=== PATIENT | male | born 1960 | race Caucasian/White ===

== ENCOUNTER 2016-12-26 17:04 | Emergency (ER) | payer BC ==
[2016-12-26 17:10] VITALS: TEMP 98.1
--- NOTE | 2016-12-26 17:20 | EDPHY ---
HPI/HX/ROS/PE/MDM Narrative: CHIEF COMPLAINT: Rectal bleeding HISTORY OF PRESENT ILLNESS: The patient is a 56 y/o male who complains of rectal bleeding since this evening. He has a history of hemorrhoids and has had 2 of them banded. He noticed his hemorrhoids were bothering him earlier today. This evening he passed some gas and then felt wet. He went to the bathroom and noticed he was bleeding when he wiped. He went to the bathroom again and had a bowel movement. In the toilet bowel it looked like there was blood in the toilet. He is unsure if the blood was coating the stool. There was no rectal pain or pain with defecation. Notes he is recently having more bowel movements than normal. Denies pain while passing the bowel movement or rectal pain. Denies indigestion or upset stomach. Denies a colonoscopy, liver problems or abdominal surgeries. Denies anticoagulant use. Denies tobacco or alcohol use. No fever, chills, chest pain, shortness of breath, palpitations, vomiting, diarrhea, urinary complaints, headache, lightheadedness, dizziness. REVIEW OF SYSTEMS: Aside from elements discussed in the HPI, a comprehensive 10-point review of systems was reviewed and is negative. 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 HEENT: Atraumatic. Eyes: No icterus, no injection. Mouth: moist mucous membranes. No erythema or lesions. Neck: supple with no adenopathy. LUNGS: Clear to auscultation bilaterally, no wheezes, rhonchi or rales. CARDIAC: Regular rate and rhythm, no rubs, murmurs or gallops. ABDOMEN: Soft, nontender, nondistended, bowel sounds normal. RECTAL: 2 external hemorrhoids, no thrombosis, not painful, not externally bleeding. Bright red blood on glove. Rectal exam nontender. BACK: No CVA tenderness. EXTREMITIES: No trauma. No edema. Range of motion is normal throughout. NEURO: Alert and oriented, grossly nonfocal. SKIN: Warm and dry, no rash. PSYCHIATRIC: Normal mentation, no agitation. Portions of this note were transcribed by a medical coding instructor. I personally performed a history, physical exam, medical decision making, and confirmed accuracy of information the transcribed note. ED Course: The patient is a 56 y/o male who presents with 2 external hemorrhoids and rectal bleeding. Evaluation emergency department demonstrates normal hemoglobin hematocrit, normal hemodynamics, no abdominal pain, no history suggestive of upper GI bleeding, no history suggestive of diverticular bleeding. He I suspect the patient's bleeding source is most likely internal hemorrhoids. Long discussion held with the patient and his concerning my suspicion of hemorrhoidal bleeding. They do understand that there is a chance of upper GI bleed, significant lower GI bleed, diverticular bleeding, and chance of significant bleeding complications. They are comfortable being discharged with Anusol suppositories and close follow-up. 184: Spoke with Dr. Valente, alodize machine helper, he believes this is hemorrhoidal bleeding. The patient will be referred for an outpatient followup visit on Wednesday. He also needs to have a screening colonoscopy. He will be discharged with Anusol HC. 12-LEAD EKG: Please see the full report in [facility]. My interpretation: Sinus tachycardia with rate of 104. Reassessed patient and discussed plan for follow up visit with Dr. Valente. Return precautions discussed; patient is comfortable with this plan. MDM: Differential diagnosis of this patient's lower GI bleeding was considered including but not limited to diverticular bleeding, diverticulitis, diverticulosis, ischemic colitis, infectious colitis, tumor, AVM, hemorrhoid and anal fissure. - Data Points Laboratory Results: Laboratory Results 12/26/16 17:29 12/26/16 17:29 12/26/16 12/26/16 12/26/16 18:09 17:29 17:29 WBC 6.70 10^3/uL 10^3/uL (3.80-9.50) RBC 5.05 10^6/uL 10^6/uL (4.40-6.38) Hgb 15.6 g/dL g/dL (13.7-17.5) Hct 46.1 % % (40.0-51.0) MCV 91.3 fL fL (81.5-99.8) MCH 30.9 pg pg (27.9-34.1) MCHC 33.8 g/dL g/dL (32.4-36.7) RDW 12.8 % % (11.5-15.2) Plt Count 186 10^3/uL 10^3/uL (150-400) MPV 12.5 fL H fL (8.7-11.7) Neut % (Auto) 53.9 % % (39.3-74.2) Lymph % (Auto) 32.5 % % (15.0-45.0) Dane % (Auto) 9.3 % % (4.5-13.0) Eos % (Auto) 3.1 % % (0.6-7.6) Baso % (Auto) 0.9 % % (0.3-1.7) Nucleat RBC Rel Count 0.0 % % (0.0-0.2) Absolute Neuts (auto) 3.61 10^3/uL 10^3/uL (1.70-6.50) Absolute Lymphs (auto) 2.18 10^3/uL 10^3/uL (1.00-3.00) Absolute Monos (auto) 0.62 10^3/uL 10^3/uL (0.30-0.80) Absolute Eos (auto) 0.21 10^3/uL 10^3/uL (0.03-0.40) Absolute Basos (auto) 0.06 10^3/uL 10^3/uL (0.02-0.10) Absolute Nucleated RBC 0.00 10^3/uL 10^3/uL (0-0.01) Immature Gran % 0.3 % % (0.0-1.1) Immature Gran # 0.02 10^3/uL 10^3/uL (0.00-0.10) Sodium 137 mEq/L mEq/L (134-144) Potassium 4.3 mEq/L mEq/L (3.5-5.2) Chloride 105 mEq/L mEq/L (97-110) Carbon Dioxide 22 mEq/l mEq/l (22-31) Anion Gap 10 mEq/L mEq/L (8-16) BUN 16 mg/dL mg/dL (7-23) Creatinine 1.1 mg/dL mg/dL (0.7-1.3) Estimated GFR > 60 Glucose 83 mg/dL mg/dL (70-100) Calcium 10.0 mg/dL mg/dL (8.5-10.4) Troponin I < 0.012 ng/mL ng/mL (0.000-0.034) Stool Occult Bld Scrn POSITIVE H (NEGATIVE) Medications Given: Discontinued Medications Sodium Chloride (Ns) 1,000 mls @ 0 mls/hr IV ONCE ONE; Wide Open PRN Reason: Protocol Stop: 12/26/16 17:42 Last Admin: 12/26/16 17:49 Dose: 1,000 mls General Time Seen by Provider: 12/26/16 17:15 Initial Vital Signs: Initial Vital Signs Temperature (C) 36.7 C 12/26/16 17:08 Heart Rate 97 12/26/16 17:08 Respiratory Rate 18 12/26/16 17:08 Blood Pressure 116/81 H 12/26/16 17:08 O2 Sat (%) 95 12/26/16 17:08 O2 Delivery Mode Room Air Allergies/Adverse Reactions: CONTRAST DYE Allergy (Uncoded 12/26/16 17:05) Hives Home Medications: Medication Instructions Recorded Albuterol [Proventil Inhaler HFA 2 puffs IH Q6 PRN 02/01/11 (*)] Cholecalciferol Vit D3 [Vitamin D3 1,000 units PO DAILY 04/29/15 (*)] [place]-3 Fatty Acids [Fish Oil 1000 1,000 mg PO DAILY 04/29/15 mg (*)] Herbals/Supplements -Info Only 1 ea PO DAILY 06/04/15 Hydrocortisone Acetate [Anucort-Hc] 25 mg RC BID #10 supp.rect 12/26/16 Departure - Departure Disposition: Home, Routine, Self-Care Clinical Impression: Rectal bleeding Condition: Good Instructions: Hemorrhoids (ED), Rectal Bleeding (ED) Additional Instructions: 1. Take Anusol HC as prescribed. 2. Follow up with Dr. Valente, alodize machine helper, on Wednesday. You will need to call for an appointment. You also need to have a screening colonoscopy. 3. Return to the ED if you experience fever, nausea, vomiting, weakness or other worsening of your symptoms. Referrals: FUENTES HUDSON [Primary Care Provider] - As per Instructions Fam Valente MD [Medical Doctor] - As per Instructions Prescriptions: Hydrocortisone Acetate [Anucort-Hc] 25 mg RC BID #10 supp.rect Report Scribed for: Ashley Mariscal Report Scribed by: Cristela Monzon Date of Report: 12/26/16 Time of Report: 17:16
[2016-12-26] MEDS ORDERED: NS 1,000 ML IV ONE (17:41)
[2016-12-26 17:48] LABS: % IMMATURE GRANULYOCYTES 0.3 % (0.0-1.1); ABSOLUTE IMMATURE GRANULOCYTES 0.02 10^3/uL (0.00-0.10); ADD DIFF? NO; ADD MORPH? NO; ADD SCAN? NO; ATYPICAL LYMPHOCYTE FLAG 0 (0-99); FRAGMENT RBC FLAG 0 (0-99); HEMATOCRIT 46.1 % (40.0-51.0); HEMOGLOBIN 15.6 g/dL (13.7-17.5); LEFT SHIFT FLG 0 (0-99); LIPEMIA HEMOLYSIS FLAG 90 (0-99); MEAN CELL HEMOGLOBIN 30.9 pg (27.9-34.1); MEAN CELL HEMOGLOBIN CONCENTR. 33.8 g/dL (32.4-36.7); MEAN CELL VOLUME 91.3 fL (81.5-99.8); MEAN PLATELET VOLUME 12.5 fL (8.7-11.7); PLATELET CLUMPS FLAG 0 (0-99); PLATELET COUNT 186 10^3/uL (150-400); RED BLOOD CELL COUNT 5.05 10^6/uL (4.40-6.38); RED CELL DISTRIBUTION WIDTH 12.8 % (11.5-15.2)
[2016-12-26 17:52] VITALS: RESP 16
[2016-12-26 17:59] LABS: ANION GAP 10 mEq/L (8-16); CARBON DIOXIDE 22 mEq/l (22-31); CHLORIDE 105 mEq/L (97-110); CREATININE 1.1 mg/dL (0.7-1.3); GLOMERULAR FILTRATION RATE > 60; GLUCOSE 83 mg/dL (70-100); POTASSIUM 4.3 mEq/L (3.5-5.2); SODIUM 137 mEq/L (134-144)
--- NOTE | 2016-12-26 18:03 | CPEKG ---
Heart Rate: 104 RR Interval: 577 P-R Interval: 160 QRSD Interval: 74 QT Interval: 324 QTC Interval: 427 P [place]: 77 QRS [place]: 69 T Wave [place]: 43 EKG Severity - ABNORMAL ECG - EKG Impression: SINUS TACHYCARDIA EKG Impression: CONSIDER ANTEROSEPTAL INFARCT Electronically Signed By: Ashley Mariscal 26-Dec-2016 21:08:51
[2016-12-26 18:10] LABS: TROPONIN I < 0.012 ng/mL (0.000-0.034)
[2016-12-26 19:29] VITALS: BP 110/60; PULSE 85; O2SAT 97
== END 2016-12-26 19:28 | disposition home or self-care (01) ==
DX: K62.5 Hemorrhage of anus and rectum (principal); E86.9 Volume depletion, unspecified

== ENCOUNTER → 2018-04-01 | Outpatient (CLI) | payer OTHER, BC | LOC: BMCIMAGING 17:55 | PROVIDERS: ATTEND Family Medicine | DX: R06.02 Shortness of breath (principal); J40 Bronchitis, not specified as acute or chronic ==